=== PATIENT | female | born 1980 | race Caucasian/White ===

== ENCOUNTER 2018-05-27 04:26 | Emergency (ER) | payer OTHER ==
[2018-05-27] MEDS ORDERED: IBUPROFEN 400 MG TAB ONE (04:48)
--- NOTE | 2018-05-27 04:59 | ER ---
Nurse's Notes [facility] Name: Isabel Yeung Age: 37 yrs Sex: Female : 1980 Arrival Date: 05/27/2018 Time: 04:27 Bed 4 Private MD: Diagnosis: Fall due to bumping against object;Pain in right knee Presentation: 05/27 04:25 Presenting complaint: Patient states: that she was changing a tire and the lug wrench fc slipped and hit her in the right knee. She then hit the knee on the ground. Unable to stand or straighten leg. Transition of care: patient was not received from another setting of care. Onset of symptoms was May 27, 2018 at 04:00. Risk Assessment: Do you want to hurt yourself or someone else? Patient reports no desire to harm self or others. Initial Sepsis Screen: Does the patient meet any 2 criteria? No. Patient's initial sepsis screen is negative. Does the patient have a suspected source of infection? No. Patient's initial sepsis screen is negative. Care prior to arrival: Medication(s) given: Fentanyl 50 mcg nasally. 04:25 Method Of Arrival: EMS: [facility] 04:25 Acuity: ILENE 3 Triage Assessment: 04:38 General: Appears uncomfortable, slender, Behavior is calm, cooperative, appropriate for age. Pain: Complains of pain in right leg Pain currently is 2 out of 10 on a pain scale. at worst was 10 out of 10 on a pain scale. Quality of pain is described as aching, sharp, throbbing, Pain began 30 min ago. Is continuous, Aggravated by increased activity, repositioning. EENT: No deficits noted. Neuro: Level of Consciousness is awake, alert, obeys commands, Oriented to person, place, time, situation. Cardiovascular: No deficits noted. Respiratory: No deficits noted. GI: No deficits noted. : No deficits noted. Derm: Skin is pink, warm \T\ dry. Musculoskeletal: Circulation, motion, and sensation intact. Capillary refill < 3 seconds, Range of motion: intact in all extremities. 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 - Social history:: Smoking status: Patient/guardian denies using tobacco. - Ebola Screening: : Patient negative for fever greater than or equal to 101.5 degrees Fahrenheit, and additional compatible Ebola Virus Disease symptoms Patient denies exposure to infectious person Patient denies travel to an Ebola-affected area in the 21 days before illness onset. - Family history:: not pertinent. Screenin:25 Abuse screen: Denies threats or abuse. Nutritional screening: No deficits noted. fc Tuberculosis screening: No symptoms or risk factors identified. Fall Risk None identified. Assessment: 04:40 Reassessment: See triage assessment. 05:30 Reassessment: Patient appears in no apparent distress at this time. Patient and/or cc3 family updated on plan of care and expected duration. Pain level reassessed. Patient is alert, oriented x 3, equal unlabored respirations, skin warm/dry/pink. Dr. Leonard discharged the patient home with prescriptions given. No IV cannula in situ. Patient left ER vitally stable and ambulatory with crutches. Vital Signs: 04:25 BP 127 / 84; Pulse 68; Resp 20; Temp 98.8(O); Pulse Ox 100% on R/A; Weight 68.04 kg fc (R); Height 5 ft. 4 in. (162.56 cm) (R); Pain 2/10; 04:25 Body Mass Index 25.75 (68.04 kg, 162.56 cm) ED Course: 04:25 Arm band placed on Patient placed in an exam room, on a stretcher. fc 04:25 Patient has correct armband on for positive identification. Placed in gown. Bed in low fc position. Call light in reach. Side rails up X2. Pulse ox on. NIBP on. 04:27 Patient arrived in ED. tl2 04:28 Kauhsal Leonard MD is Attending Physician. sukhjinder 04:35 Triage completed. fc 04:52 X-ray completed. Portable x-ray completed in exam room. Patient tolerated procedure sg4 well. 04:53 Gisel Hightower is Primary Nurse. cc3 04:57 Knee Right 3 View XRAY In Process Unspecified. EDMS 04:58 Andrea Candelaria MD is Referral Physician. [facility] 05:30 No provider procedures requiring assistance completed. Patient did not have IV access cc3 during this emergency room visit. Administered Medications: 04:46 Drug: Motrin 600 mg Route: PO; tl2 05:30 Follow up: Response: No adverse reaction; Pain is decreased cc3 05:00 Drug: [place] 10 mg-325 mg 1 tabs Route: PO; cc3 05:30 Follow up: Response: No adverse reaction; Pain is decreased cc3 Outcome: 04:58 Discharge ordered by . [facility] 05:30 Discharged to home ambulatory, with friend, with crutches cc3 05:30 Condition: stable 05:30 Discharge instructions given to patient, Instructed on discharge instructions, follow up and referral plans. medication usage, Demonstrated understanding of instructions, follow-up care, medications, Prescriptions given X 2. 05:36 Patient left the ED. cc3 Signatures: Dispatcher [employer] EDKaushal Moreira MD MD cha Chretien, Felicia RN RN Sita Mackenzie RN RN tl2 Gisel Hightower cc3 Stacy Cantu sg4 Corrections: (The following items were deleted from the chart) 04:39 04:25 Care prior to arrival: None. [facility] 04:39 04:25 Care prior to arrival: Medication(s) given: Fentanyl 50 mcg IM [facility]
--- NOTE | 2018-05-27 04:59 | EDPHYS ---
Physician Documentation [facility] Name: Isabel Yeung Age: 37 yrs Sex: Female : 1980 Arrival Date: 05/27/2018 Time: 04:27 Bed 4 Private MD: ED Physician Kaushal Leonard HPI: 05/27 04:40 This 37 yrs old Female presents to ER via EMS with complaints of right knee sukhjinder pain, sp fall. 04:40 The patient presents with decreased range of motion, pain, that is acute. The sukhjinder complaints affect the right knee. Context: The problem was sustained on a street or driveway. Onset: The symptoms/episode began/occurred just prior to arrival. Modifying factors: The symptoms are alleviated by elevating leg, remaining still. Associated signs and symptoms: The patient has no apparent associated signs or symptoms. Treatment prior to arrival includes: prescription medications, nasal fentanyl. Severity of symptoms: At their worst the symptoms were moderate, in the emergency department the symptoms are unchanged. The patient has not experienced similar symptoms in the past. 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 - Social history:: Smoking status: Patient/guardian denies using tobacco. - Ebola Screening: : Patient negative for fever greater than or equal to 101.5 degrees Fahrenheit, and additional compatible Ebola Virus Disease symptoms Patient denies exposure to infectious person Patient denies travel to an Ebola-affected area in the 21 days before illness onset. - Family history:: not pertinent. ROS: 04:40 Constitutional: Negative for fever, chills, and weight loss, Eyes: Negative for injury, sukhjinder pain, redness, and discharge, ENT: Negative for injury, pain, and discharge, Neck: Negative for injury, pain, and swelling, Cardiovascular: Negative for chest pain, palpitations, and edema, Respiratory: Negative for shortness of breath, cough, wheezing, and pleuritic chest pain, Abdomen/GI: Negative for abdominal pain, nausea, vomiting, diarrhea, and constipation, Back: Negative for injury and pain, : Negative for injury, bleeding, discharge, and swelling, Skin: Negative for injury, rash, and discoloration, Neuro: Negative for headache, weakness, numbness, tingling, and seizure, Psych: Negative for depression, anxiety, suicide ideation, homicidal ideation, and hallucinations, Allergy/Immunology: Negative for hives, rash, and allergies, Endocrine: Negative for neck swelling, polydipsia, polyuria, polyphagia, and marked weight changes, Hematologic/Lymphatic: Negative for swollen nodes, abnormal bleeding, and unusual bruising. 04:40 MS/extremity: Positive for decreased range of motion, pain, swelling, of the right knee. Exam: 04:40 Constitutional: This is a well developed, well nourished patient who is awake, alert, sukhjinder and in no acute distress. Head/Face: Normocephalic, atraumatic. Eyes: Pupils equal round and reactive to light, extra-ocular motions intact. Lids and lashes normal. Conjunctiva and sclera are non-icteric and not injected. Cornea within normal limits. Periorbital areas with no swelling, redness, or edema. ENT: Nares patent. No nasal discharge, no septal abnormalities noted. Tympanic membranes are normal and external auditory canals are clear. Oropharynx with no redness, swelling, or masses, exudates, or evidence of obstruction, uvula midline. Mucous membranes moist. Neck: Trachea midline, no thyromegaly or masses palpated, and no cervical lymphadenopathy. Supple, full range of motion without nuchal rigidity, or vertebral point tenderness. No Meningismus. Chest/axilla: Normal chest wall appearance and motion. Nontender with no deformity. No lesions are appreciated. Cardiovascular: Regular rate and rhythm with a normal S1 and S2. No gallops, murmurs, or rubs. Normal PMI, no JVD. No pulse deficits. Respiratory: Lungs have equal breath sounds bilaterally, clear to auscultation and percussion. No rales, rhonchi or wheezes noted. No increased work of breathing, no retractions or nasal flaring. Abdomen/GI: Soft, non-tender, with normal bowel sounds. No distension or tympany. No guarding or rebound. No evidence of tenderness throughout. Back: No spinal tenderness. No costovertebral tenderness. Full range of motion. Female : Normal external genitalia. Skin: Warm, dry with normal turgor. Normal color with no rashes, no lesions, and no evidence of cellulitis. Neuro: Awake and alert, GCS 15, oriented to person, place, time, and situation. Cranial nerves II-XII grossly intact. Motor strength 5/5 in all extremities. Sensory grossly intact. Cerebellar exam normal. Normal gait. Psych: Awake, alert, with orientation to person, place and time. Behavior, mood, and affect are within normal limits. 04:40 Musculoskeletal/extremity: ROM: full active range of motion, full passive range of motion, limited active range of motion, limited passive range of motion, Circulation is intact in all extremities. Sensation intact. Compartment Syndrome exam of affected extremity: is normal. DVT Exam: negative Homans' sign noted on exam, no appreciated bluish discoloration, no erythema, no increased warmth, pain, swelling, tenderness. Vital Signs: 04:25 BP 127 / 84; Pulse 68; Resp 20; Temp 98.8(O); Pulse Ox 100% on R/A; Weight 68.04 kg fc (R); Height 5 ft. 4 in. (162.56 cm) (R); Pain 2/10; 04:25 Body Mass Index 25.75 (68.04 kg, 162.56 cm) MDM: 04:28 Patient medically screened. [facility] 04:44 Data reviewed: vital signs, nurses notes, radiologic studies, plain films. [facility] 05/27 04:39 Order name: Knee Right 3 View XRAY [facility] 05/27 04:39 Order name: Ice pack; Complete Time: 05:00 [facility] 05/27 04:39 Order name: Knee Immobilizer; Complete Time: 05:40 [facility] 05/27 04:58 Order name: Gerardo wrap-joint; Complete Time: 05:40 [facility] Administered Medications: 04:46 Drug: Motrin 600 mg Route: PO; tl2 05:30 Follow up: Response: No adverse reaction; Pain is decreased cc3 05:00 Drug: [place] 10 mg-325 mg 1 tabs Route: PO; cc3 05:30 Follow up: Response: No adverse reaction; Pain is decreased cc3 Disposition: 05/27/18 04:58 Discharged to Home. Impression: Fall due to bumping against object, Pain in right knee. - Condition is Stable. - Discharge Instructions: How to Use a Knee Brace, Knee Pain, Joint Pain, [id number]. - Prescriptions for Ibuprofen 600 mg Oral Tablet - take 1 tablet by ORAL route every 8 hours As needed take with food; 21 tablet. Tylenol- Codeine #3 300-30 mg Oral Tablet - take 2 tablets by ORAL route every 6 hours As needed; 24 tablet. - Medication Reconciliation Form, Thank You Letter, Antibiotic Education, Prescription Opioid Use form. - Follow up: Private Physician; When: 2 - 3 days; Reason: Recheck today's complaints, Continuance of care, Re-evaluation by your physician. Follow up: Andrea Candelaria; When: 2 - 3 days; Reason: Recheck today's complaints, Continuance of care, Re-evaluation by your physician. - Problem is new. - Symptoms have improved. Signatures: Dispatcher [employer] EDKaushal Moreira MD MD cha Chretien, Felicia RN RN Sita Mackenzie RN RN 2 Gisel Hightower 3 Corrections: (The following items were deleted from the chart) 05:36 04:58 05/27/2018 04:58 Discharged to Home. Impression: Fall due to bumping against cc3 object; Pain in right knee. Condition is Stable. Discharge Instructions: How to Use a Knee Brace, Knee Pain, Joint Pain, [id number]. Prescriptions for Ibuprofen 600 mg Oral Tablet - take 1 tablet by ORAL route every 8 hours As needed take with food; 21 tablet, Tylenol-Codeine #3 300-30 mg Oral Tablet - take 2 tablets by ORAL route every 6 hours As needed; 24 tablet. and Forms are Medication Reconciliation Form, Thank You Letter, Antibiotic Education, Prescription Opioid Use. Follow up: Private Physician; When: 2 - 3 days; Reason: Recheck today's complaints, Continuance of care, Re-evaluation by your physician. Follow up: Andrea Candelaria; When: 2 - 3 days; Reason: Recheck today's complaints, Continuance of care, Re-evaluation by your physician. Problem is new. Symptoms have improved. sukhjinder
[2018-05-27] MEDS ORDERED: HYDROCODONE/APAP 10/325 TAB ONE (05:11)
--- NOTE | 2018-05-27 12:34 | RAD REPORT ---
EXAM DESCRIPTION: RAD - Knee Right 3 View - 05/27/2018 4:58 am CLINICAL HISTORY: PAIN Trauma, pain COMPARISON: No comparisons FINDINGS: No fracture or dislocation of the right knee is seen. No joint effusion present.
== END 2018-05-27 05:36 | disposition home or self-care (01) ==
LOC: ER 04:26
DX: M25.561 Pain in right knee (principal); W18.09XA Striking against other object with subsequent fall, initial encounter
CPT/HCPCS: 99284

== ENCOUNTER 2021-04-14 09:56 | Emergency (ER) | payer BC, OTHER ==
[2021-04-14] MEDS ORDERED: AMOX/K CLAV 875 MG TAB ONE (11:07)
[2021-04-14] MEDS ORDERED: MORPHINE 4 MG/ML SYR ONE (11:07)
[2021-04-14] MEDS ORDERED: ONDANSETRON 4 MG (ODT) TAB ONE (11:08)
--- NOTE | 2021-04-14 11:11 | EDPHYS ---
Physician Documentation [facility] Name: Isabel Yeung Age: 40 yrs Sex: Female : 1980 Arrival Date: 04/14/2021 Time: 09:59 Bed 12 Private MD: ED Physician Polina Tomlin HPI: 04/14 11:08 This 40 yrs old Female presents to ER via Ambulatory with complaints of Ear ma2 Pain. 11:08 Onset: The symptoms/episode began/occurred suddenly, 3 day(s) ago. Associated signs and ma2 symptoms: Pertinent negatives: nausea, shortness of breath, tinnitus, vertigo. Severity of symptoms: At their worst the symptoms were moderate in the emergency department the symptoms are unchanged. The patient has not experienced similar symptoms in the past. Patient has left ear pain, for 3 days. Constant severe.. 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 - Social history:: Smoking status: Patient/guardian denies using tobacco, the patient reports quitting approximately 3 years ago, Patient/guardian denies using alcohol, street drugs, The patient lives with family. - Family history:: not pertinent. ROS: 11:08 Constitutional: Negative for fever, chills, and weight loss. ma2 11:08 All other systems are negative. Exam: 11:08 Constitutional: This is a well developed, well nourished patient who is awake, alert, ma2 and in no acute distress. Head/Face: Normocephalic, atraumatic. Eyes: Pupils equal round and reactive to light, extra-ocular motions intact. Lids and lashes normal. Conjunctiva and sclera are non-icteric and not injected. Cornea within normal limits. Periorbital areas with no swelling, redness, or edema. ENT: Left emilie with effusion tympanic membrane is red, no mastoiditis clinically. Otherwise right ear exam is within normal limits. No nasal discharge, no septal abnormalities noted. external auditory canals are clear. Oropharynx with no redness, swelling, or masses, exudates, or evidence of obstruction, uvula midline. Mucous membranes moist. Neck: Trachea midline, no thyromegaly or masses palpated, and no cervical lymphadenopathy. Supple, full range of motion without nuchal rigidity, or vertebral point tenderness. No Meningismus. Chest/axilla: Normal chest wall appearance and motion. Nontender with no deformity. No lesions are appreciated. Cardiovascular: Regular rate and rhythm with a normal S1 and S2. No gallops, murmurs, or rubs. Normal PMI, no JVD. No pulse deficits. Respiratory: Lungs have equal breath sounds bilaterally, clear to auscultation and percussion. No rales, rhonchi or wheezes noted. No increased work of breathing, no retractions or nasal flaring. Abdomen/GI: Soft, non-tender, with normal bowel sounds. No distension or tympany. No guarding or rebound. No evidence of tenderness throughout. Back: No spinal tenderness. No costovertebral tenderness. Full range of motion. Skin: Warm, dry with normal turgor. Normal color with no rashes, no lesions, and no evidence of cellulitis. MS/ Extremity: Pulses equal, no cyanosis. Neurovascular intact. Full, normal range of motion. Neuro: Awake and alert, GCS 15, oriented to person, place, time, and situation. Cranial nerves II-XII grossly intact. Motor strength 5/5 in all extremities. Sensory grossly intact. Cerebellar exam normal. Normal gait. Vital Signs: 10:26 BP 135 / 95; Pulse 65; Resp 16; Temp 98.9; Pulse Ox 100% ; Weight 63.5 kg; Height 5 ft. vg1 4 in. (162.56 cm); Pain 10/10; 10:26 Body Mass Index 24.03 (63.50 kg, 162.56 cm) vg1 MDM: 10:40 Patient medically screened. ma2 11:08 Differential diagnosis: otitis media, ruptured TM, acute otalgia. Data reviewed: vital ma2 signs, nurses notes. Counseling: I had a detailed discussion with the patient and/or guardian regarding: the historical points, exam findings, and any diagnostic results supporting the discharge/admit diagnosis, the presence of at least one elevated blood pressure reading (>120/80) during this emergency department visit, the need for outpatient follow up. Response to treatment: the patient's symptoms have markedly improved after treatment. Administered Medications: 11:03 Not Given (Physician Discretion): morphine 8 mg IVP once; RASS on ADMIN: Combtv4, Very ss Agttd3, Agttd2, Rstlss1, AlertClm0, Drwsy-1, Lt Sdtn-2, Mod Sdtn-3, Dp Sdtn-4, UnArsble-5 11:15 Drug: Ondansetron 4 mg Route: PO; ss 11:48 Follow up: Response: No adverse reaction ss 11:18 Drug: Augmentin (Amoxicillin-Clavulanate) 875 mg Route: PO; ss 11:48 Follow up: Response: No adverse reaction ss 11:18 Drug: Clindamycin 300 mg Route: PO; ss 11:48 Follow up: Response: No adverse reaction ss 11:18 Drug: morphine 8 mg Route: IM; Site: right gluteus; ss 11:48 Follow up: Response: No adverse reaction; Pain is decreased ss Disposition Summary: 04/14/21 11:10 Discharge Ordered Location: Home ma2 Condition: Stable ma2 Diagnosis - Acute serous otitis media, left ear ma2 Followup: ma2 - With: Private Physician - When: Tomorrow - Reason: Continuance of care Discharge Instructions: - Discharge Summary Sheet ma2 - Otitis Media, Adult ma2 Forms: - Medication Reconciliation Form ma2 - Thank You Letter ma2 - Antibiotic Education ma2 - Prescription Opioid Use ma2 Prescriptions: - Augmentin 875-125 mg Oral Tablet - take 1 tablet by ORAL route every 12 hours for 10 days; 20 tablet; Refills: 0, ma2 Product Selection Permitted - Clindamycin HCl 300 mg Oral Capsule - take 1 capsule by ORAL route every 6 hours for 10 days; 40 capsule; Refills: 0, ma2 Product Selection Permitted - Diclofenac Sodium 75 mg Oral Tablet Sustained Release - take 1 tablet by ORAL route 2 times per day; 30 tablet; Refills: 0, Product ma2 Selection Permitted - Fluconazole 200 mg Oral Tablet - take 2 tablets by ORAL route once daily; 60 tablet; Refills: 0, Product ma2 Selection Permitted Signatures: Josette Brush RN RN ss Polina Tomlin MD MD ma2 Pepe, Jade, RN RN vg1
--- NOTE | 2021-04-14 11:11 | ER ---
Nurse's Notes [facility] Name: Isabel Yeung Age: 40 yrs Sex: Female : 1980 Arrival Date: 04/14/2021 Time: 09:59 Bed 12 Private MD: Diagnosis: Acute serous otitis media, left ear Presentation: 04/14 10:26 Chief complaint: Patient states: Left ear pain began on Monday04/11/21; states went to [address] and was given an antibiotic IV and Rx of Cefuroxime and Medrol. 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 State Left ear pain feels 'sharp and medications dont seem to be working'. Also states nausea and sore throat. Coronavirus screen: Vaccine status: Patient reports being unvaccinated. Ebola Screen: Patient negative for fever greater than or equal to 101.5 degrees Fahrenheit, and additional compatible Ebola Virus Disease symptoms. Initial Sepsis Screen: Does the patient meet any 2 criteria? No. Patient's initial sepsis screen is negative. Does the patient have a suspected source of infection? No. Patient's initial sepsis screen is negative. Risk Assessment: Do you want to hurt yourself or someone else? Patient reports no desire to harm self or others. Onset of symptoms was April 11, 2021. 10:26 Method Of Arrival: Ambulatory [facility] 10:26 Acuity: ILENE 3 1 Triage Assessment: 10:29 General: Appears in no apparent distress. uncomfortable, Behavior is calm, cooperative. vg1 Pain: Complains of pain in left ear and throat Pain currently is 10 out of 10 on a pain scale. EENT: Throat is clear. 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 - Social history:: Smoking status: Patient/guardian denies using tobacco, the patient reports quitting approximately 3 years ago, Patient/guardian denies using alcohol, street drugs, The patient lives with family. - Family history:: not pertinent. Screenin:00 Abuse screen: Denies threats or abuse. Denies injuries from another. Nutritional ss screening: No deficits noted. Nutritional screening: No deficits noted. Tuberculosis screening: Never had TB. Fall Risk None identified. Assessment: 11:47 Reassessment: Patient appears in no apparent distress at this time. Patient and/or ss family updated on plan of care and expected duration. Pain level reassessed. Patient is alert, oriented x 3, equal unlabored respirations, skin warm/dry/pink. Pt reports some relief from Morphine administration. at bedside who states he will drive home. Pt verbalizes understanding importance of follow up and has scheduled appointment with ENT, however their first available appointment is in May. Vital Signs: 10:26 BP 135 / 95; Pulse 65; Resp 16; Temp 98.9; Pulse Ox 100% ; Weight 63.5 kg; Height 5 ft. vg1 4 in. (162.56 cm); Pain 10/10; 10:26 Body Mass Index 24.03 (63.50 kg, 162.56 cm) vg1 ED Course: 09:59 Patient arrived in ED. ds1 10:29 Triage completed. vg1 10:29 Arm band placed on. vg1 10:33 Josette Brush, SUMAN is Primary Nurse. ss 10:40 Polina Tomlin MD is Attending Physician. ma2 11:00 Patient has correct armband on for positive identification. Bed in low position. Call ss light in reach. 11:47 No provider procedures requiring assistance completed. Patient did not have IV access ss during this emergency room visit. Administered Medications: 11:03 Not Given (Physician Discretion): morphine 8 mg IVP once; RASS on ADMIN: Combtv4, Very ss Agttd3, Agttd2, Rstlss1, AlertClm0, Drwsy-1, Lt Sdtn-2, Mod Sdtn-3, Dp Sdtn-4, UnArsble-5 11:15 Drug: Ondansetron 4 mg Route: PO; ss 11:48 Follow up: Response: No adverse reaction ss 11:18 Drug: Augmentin (Amoxicillin-Clavulanate) 875 mg Route: PO; ss 11:48 Follow up: Response: No adverse reaction ss 11:18 Drug: Clindamycin 300 mg Route: PO; ss 11:48 Follow up: Response: No adverse reaction ss 11:18 Drug: morphine 8 mg Route: IM; Site: right gluteus; ss 11:48 Follow up: Response: No adverse reaction; Pain is decreased Outcome: 11:10 Discharge ordered by . sarah 11:47 Discharged to home ambulatory, with significant other. ss 11:47 Condition: good 11:47 Discharge instructions given to patient, significant other, Instructed on discharge instructions, follow up and referral plans. medication usage, Demonstrated understanding of instructions, follow-up care, medications, Prescriptions given X 4. 11:49 Patient left the ED. ss Signatures: Jaci Cuevas ds1 Josette Brush RN RN ss Polina Tomlin MD MD ma2 Jade Cantu RN RN vg1
[2021-04-14 12:08] VITALS: BP 135/95; TEMP 98.9; O2SAT 100
--- OUTSIDE RECORDS SUMMARY | 2021-04-17 18:58 | XMS REPORT | Continuity of Care Document ---
:1980 Author Organization [facility] t Address [address] [place] [address] Care Team Providers Name Role Phone Ko LEVINE, Inga Attending Clinician Shant DEMPSEY Attending Clinician Unavailable DALJIT Attending Clinician Unavailable Payers Payer Name Policy Type Policy Number Effective Date Expiration Date [place] [address] [id number] 2020 00:00:00 HLTH-TML/PPO Problems Condition Condition Condition Status Onset Resolution Last Treating Co mments Source Name Details Category Date Date Treatment Clinician Date No known No known Disease Kelse felix active active Sephil problems problems Allergies, Adverse Reactions, Alerts Allergy Allergy Status Severity Reaction(s) Onset Inactive Treating Comm ents Source Name Type Date Date Clinician No Known DA Active U [facility] Allergie 2-03 Clear s 00:00: Lamb 00 [facility] Social History Social Habit Start Date Stop Date Quantity Comments Source Sex Assigned At [birth year] Kaitbrian villarreal 00:00:00 00:00:00 Smoking Status Start Date Stop Date Source Ex-smoker 2021-04-13 00:00:00 2021-04-13 00:00:00 Kait mccray Medications Ordered Filled Start Stop Current Ordering Indication Dosage Frequency Signature Comments Components Source Medication Medication Date Date Medication? Clinician (SIG) Name Name Fexofenadin 2021-1 Yes Take by Walter sey e HCl 1-09 mouth Seybold (DENEEN 09:35: ALLERGY OR) 38 EPINEPHrine Yes .3mg Inject 0.3 Kait (EPIPEN 7-13 mL (0.3 mg Seybol d 2-LAURIE) 0.3 00:00: total) as MG/0.3 ML 00 directed IJ SOAJ as needed for anaphylaxi s 1 time only Immunizations Ordered Immunization Filled Immunization Date Status Commen ts Source Name Name Tdap- (Boostrix, 2019-12-04 Completed Kait mccray Adacel) 00:00:00 Hep A/ Hep B Combo 2015-06-01 Completed Kait Loweryybold 00:00:00 Hep A/ Hep B Combo 2015-01-27 Completed Kait Loweryybphillip 00:00:00 Hep A/ Hep B Combo 2014-12-30 Completed Kait Loweryybold 00:00:00 Vital Signs Vital Name Observation Time Observation Value Comments Source Systolic blood pressure 2021-04-13 15:30:00 114 mm[Hg] Kait Seybold Diastolic blood 2021-04-13 15:30:00 60 mm[Hg] Kelse y Seybold pressure Heart rate 2021-04-13 15:30:00 79 /min Kait livingstonbomariely Body temperature 2021-04-13 15:30:00 36.56 Yue Karla ey Seybold Respiratory rate 2021-04-13 15:30:00 16 /min Karla livingston Seybphillip Body height 2021-04-13 15:30:00 162.6 cm Kait mccray Body weight 2021-04-13 15:30:00 67.586 kg Kait livingstonbold BMI 2021-04-13 15:30:00 25.58 kg/m2 Kait mccray Systolic blood pressure 2021-04-13 15:30:00 114 mm[Hg] Kait Seybold Diastolic blood 2021-04-13 15:30:00 60 mm[Hg] Kelse y Seybold pressure Heart rate 2021-04-13 15:30:00 79 /min Kait livingstonbold Body temperature 2021-04-13 15:30:00 36.56 Yue Karla ey Seybold Respiratory rate 2021-04-13 15:30:00 16 /min Karla Sherwood Body height 2021-04-13 15:30:00 162.6 cm Kait mccray Body weight 2021-04-13 15:30:00 67.586 kg Kait mccray BMI 2021-04-13 15:30:00 25.58 kg/m2 Kait mccray Procedures This patient has no known procedures. Encounters Start End Encounter Admission Attending Care Care Encounter Source Date/Time Date/Time Type Type Clinicians Facility Department ID 2021-04-13 2021-04-13 Office Adonis Connell [id number] Kait 09:25:26 09:55:26 Visit Dang Andrea [id number] Se villarreal Somogyi [id number] 2021-04-13 2021-04-13 Office Adonis Connell [id number] 09:25:26 09:55:26 Visit Dang Mendez [id number] Somogyi [id number] 2020-12-16 2020-12-16 Outpatient KAIT BANERJEE [id number] Kait 10:30:00 10:30:00 Seybol d 2020-12-16 2020-12-16 Outpatient KAIT BANERJEE [id number] Kait 10:25:00 10:25:00 Seybol d 2020-12-16 2020-12-16 Outpatient EDUARDO DEMPSEY [id number] Kait 00:00:00 00:00:00 Seybol d 2020-12-15 2020-12-15 Outpatient KAIT BOCANEGRA [id number] Kait 15:30:00 15:30:00 MICHAEL Seybol d 2020-12-15 2020-12-15 Outpatient KAIT BANERJEE [id number] Kait 14:30:00 14:30:00 Seybol d 2020-12-15 2020-12-15 Outpatient KAIT BANERJEE [id number] Kait 13:00:00 13:00:00 Seybol d 2020-12-15 2020-12-15 Outpatient KAIT BOCANEGRA [id number] Kait 00:00:00 00:00:00 MICHAEL huynh 2020-10-01 2020-10-01 Outpatient EDUARDO DEMPSEY KAIT [id number] Kait 00:00:00 00:00:00 Lobo huynh Results Test Description Test Time Test Comments Results Result [facility] e Comments - XR ELBOW 2 VIEWS 2018-07-08 FAX: LT 03:07:00 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 HISTORY: Fall. Fracture left wrist. COMPARISON: None. FINDINGS: Frontal and lateral radiograph of the left forearm is submitted. There is comminuted fracture of the distal radial metaphyses with mild dorsal angulation and dorsal displacement of the distal fracture fragment. Avulsion fracture of the ulnar styloid. Mild soft tissue swelling of the wrist seen. Elbow joint is intact. There is no radiopaque foreign body. If indicated, short-term follow-up or MRI can be obtained for complete assessment. IMPRESSION: 1. Distal radius fracture 2. Avulsion fracture of the ulnar styloid. 3. Soft tissue swelling. SL:[JSYED-H] EXAM: CR, XR WRIST 3+ VIEWS, LT: 07/08/2018. HISTORY: Fall. Fracture left wrist. COMPARISON: None. FINDINGS: Frontal oblique and lateral radiograph of the left wrist is submitted. There is comminuted fracture of the distal radial metaphyses with mild dorsal angulation and dorsal displacement of the distal fracture fragment. Avulsion fracture of the ulnar styloid. Mild soft tissue swelling of the wrist seen. If indicated, short-term follow-up or MRI can be obtained for complete PAGE 1 Signed Report (CONTINUED) FAX: Sandra Contreras [facility] [phone] [place]: St: REG Name: ADOLFO GARLAND [facility] : 1980 Age/S: 37/F [address] [place] [address] Unit #: [id number] Loc: [place] [address] Phys: Sandra Contreras [facility] Acct: [id number] Dis Date: Status: REG ER PHONE #: [phone] Exam Date: 07/08/2018 0245 FAX #: [phone] Reason: FALL, HYPEREXTENDED WRIST/HAND TO BREAK FALL EXAMS: CPT CODE: [id number] XR ELB[place] [address] [place] [address] <Continued> assessment. IMPRESSION: 1. Distal radial fracture 2. Avulsion fracture of the ulnar styloid. 3. Soft tissue swelling. SL:[JSYED-H] EXAM: CR, XR ELBOW 2 VIEWS, LT: 07/08/2018. HISTORY: Fall. Fracture left wrist. COMPARISON: None. FINDINGS: Frontal and lateral radiograph of the left elbow is submitted. Alignment is satisfactory. No acute fracture, dislocation or lytic bony lesion seen. No appreciable joint effusion identified. Elbow joint is intact. There is no radiopaque foreign body. If indicated, short-term follow-up or MRI can be obtained for complete assessment. IMPRESSION: 1. No acute fracture seen. SL:[JSYED-H] PAGE 2 Signed Report (CONTINUED) FAX: Sandra Contreras [phone] [place]: St: REG Name: ADOLFO GARLAND [facility] : 1980 Age/S: 37/F [address] [place] [address] Unit #: [id number] Loc: [place] [address] Phys: Sandra Contreras Acct: [id number] Dis Date: Status: REG ER PHONE #: [phone] Exam Date: 07/08/2018 0245 FAX #: [phone] Reason: FALL, HYPEREXTENDED WRIST/HAND TO BREAK FALL EXAMS: CPT CODE: [id number] XR ELB[address] [place] [address] <Continued> at 0307 Reported and signed by: Joshua Blancas M.D. CC: Sandra Contreras Technologist: RT Parag(R); [facility] Date/Time/By: 07/08/2018 (306) : By: [email or web address] Orig Print D/T: S: 07/08/2018 (309) PAGE 3 Signed Report - XR WRIST 3 + V 2018-07-08 FAX: LT 03:07:00 Sandra Contreras [phone] [place]: St: REG Name: ADOLFO GARLAND [facility] : 1980 Age/S: 37/F [address] [place] [address] Unit #: [id number] Loc: [place] [address] Phys: Sandra ContrerasP Acct: [id number] Dis Date: Status: REG ER PHONE #: [phone] Exam Date: 07/08/2018 0244 FAX #: [phone] Reason: FALL, HYPEREXTENDED WRIST/HAND TO BREAK FALL EXAMS: CPT CODE: [id number] XR WRIST 3 + [place] [address] EXAM: CR, XR FOREARM 2 VIEWS, LT: 07/08/2018. HISTORY: Fall. Fracture left wrist. COMPARISON: None. FINDINGS: Frontal and lateral radiograph of the left forearm is submitted. There is comminuted fracture of the distal radial metaphyses with mild dorsal angulation and dorsal displacement of the distal fracture fragment. Avulsion fracture of the ulnar styloid. Mild soft tissue swelling of the wrist seen. Elbow joint is intact. There is no radiopaque foreign body. If indicated, short-term follow-up or MRI can be obtained for complete assessment. IMPRESSION: 1. Distal radius fracture 2. Avulsion fracture of the ulnar styloid. 3. Soft tissue swelling. SL:[JSYED-H] EXAM: CR, XR WRIST 3+ VIEWS, LT: 07/08/2018. HISTORY: Fall. Fracture left wrist. COMPARISON: None. FINDINGS: Frontal oblique and lateral radiograph of the left wrist is submitted. There is comminuted fracture of the distal radial metaphyses with mild dorsal angulation and dorsal displacement of the distal fracture fragment. Avulsion fracture of the ulnar styloid. Mild soft tissue swelling of the wrist seen. If indicated, short-term follow-up or MRI can be obtained for complete PAGE 1 Signed Report (CONTINUED) FAX: Sandra Contreras [facility] [phone] [place]: St: REG Name: GARLANDADOLFO [facility] : 1980 Age/S: 37/F [address] [place] [address] Unit #: [id number] Loc: [place] [address] Phys: Sandra Contreras [facility] Acct: [id number] Dis Date: Status: [facility] ER PHONE #: [phone] Exam Date: 07/08/2018243 FAX #: [phone] Reason: FALL, HYPEREXTENDED WRIST/HAND TO BREAK FALL EXAMS: CPT CODE: [id number] XR WRIST 3 + V [place] [address] <Continued> assessment. IMPRESSION: 1. Distal radial fracture 2. Avulsion fracture of the ulnar styloid. 3. Soft tissue swelling. SL:[JSYED-H] EXAM: CR, XR ELBOW 2 VIEWS, LT: 07/08/2018. HISTORY: Fall. Fracture left wrist. COMPARISON: None. FINDINGS: Frontal and lateral radiograph of the left elbow is submitted. Alignment is satisfactory. No acute fracture, dislocation or lytic bony lesion seen. No appreciable joint effusion identified. Elbow joint is intact. There is no radiopaque foreign body. If indicated, short-term follow-up or MRI can be obtained for complete assessment. IMPRESSION: 1. No acute fracture seen. SL:[JSYED-H] PAGE 2 Signed Report (CONTINUED) FAX: Sandra Contreras [facility] [phone] [place]: St: REG Name: ADOLFO GARLAND [facility] : 1980 Age/S: 37/F [address] [place] [address] Unit #: [id number] Loc: [place] [address] Phys: Sandra Contreras [facility] Acct: [id number] Dis Date: Status: [facility] ER PHONE #: [phone] Exam Date: 07/08/2018243 FAX #: [phone] Reason: FALL, HYPEREXTENDED WRIST/HAND TO BREAK FALL EXAMS: CPT CODE: [id number] XR WRIST 3 + [place] [address] <Continued> at 0307 Reported and signed by: Joshua Blancas M.D. CC: Sandra Contreras Technologist: Nikko Kang, RT(R); Ernie Lin [facility] Date/Time/By: 07/08/2018 (306) : By: [email or web address] Orig Print D/T: S: 07/08/2018 (0772) PAGE 3 Signed Report - XR FOREARM 2 2018-07-08 FAX: VIEWS LT 03:07:00 Sandra Contreras [phone] [place]: St: REG Name: ADOLFO GARLAND [facility] : 1980 Age/S: 37/F [address] [place] [address] Unit #: [id number] Loc: [place] [address] Phys: Sandra Contreras Acct: [id number] Dis Date: Status: REG ER PHONE #: [phone] Exam Date: 07/08/2018243 FAX #: [phone] Reason: FALL, HYPEREXTENDED WRIST/HAND TO BREAK FALL EXAMS: CPT CODE: [id number] XR FORE[place] [address] [place] [address] EXAM: CR, XR FOREARM 2 VIEWS, LT: 07/08/2018. HISTORY: Fall. Fracture left wrist. COMPARISON: None. FINDINGS: Frontal and lateral radiograph of the left forearm is submitted. There is comminuted fracture of the distal radial metaphyses with mild dorsal angulation and dorsal displacement of the distal fracture fragment. Avulsion fracture of the ulnar styloid. Mild soft tissue swelling of the wrist seen. Elbow joint is intact. There is no radiopaque foreign body. If indicated, short-term follow-up or MRI can be obtained for complete assessment. IMPRESSION: 1. Distal radius fracture 2. Avulsion fracture of the ulnar styloid. 3. Soft tissue swelling. SL:[JSYED-H] EXAM: CR, XR WRIST 3+ VIEWS, LT: 07/08/2018. HISTORY: Fall. Fracture left wrist. COMPARISON: None. FINDINGS: Frontal oblique and lateral radiograph of the left wrist is submitted. There is comminuted fracture of the distal radial metaphyses with mild dorsal angulation and dorsal displacement of the distal fracture fragment. Avulsion fracture of the ulnar styloid. Mild soft tissue swelling of the wrist seen. If indicated, short-term follow-up or MRI can be obtained for complete PAGE 1 Signed Report (CONTINUED) FAX: Sandra ContrerasP [phone] [place]: St: REG Name: ADOLFO GARLAND [facility] : 1980 Age/S: 37/F [address] [place] [address] Unit #: [id number] Loc: [place] [address] Phys: Sandra ContrerasP Acct: [id number] Dis Date: Status: [facility] ER PHONE #: [phone] Exam Date: 07/08/2018 0244 FAX #: [phone] Reason: FALL, HYPEREXTENDED WRIST/HAND TO BREAK FALL EXAMS: CPT CODE: [id number] XR FORE[place] [address] [place] [address] <Continued> assessment. IMPRESSION: 1. Distal radial fracture 2. Avulsion fracture of the ulnar styloid. 3. Soft tissue swelling. SL:[JSYED-H] EXAM: CR, XR ELBOW 2 VIEWS, LT: 07/08/2018. HISTORY: Fall. Fracture left wrist. COMPARISON: None. FINDINGS: Frontal and lateral radiograph of the left elbow is submitted. Alignment is satisfactory. No acute fracture, dislocation or lytic bony lesion seen. No appreciable joint effusion identified. Elbow joint is intact. There is no radiopaque foreign body. If indicated, short-term follow-up or MRI can be obtained for complete assessment. IMPRESSION: 1. No acute fracture seen. SL:[JSYEGracia] PAGE 2 Signed Report (CONTINUED) FAX: Sandra Contreras [phone] [place]: St: REG Name: ADOLFO GARLAND [facility] : 1980 Age/S: 37/F [address] [place] [address] Unit #: [id number] Loc: [place] [address] Phys: Sandra Contreras Acct: [id number] Dis Date: Status: REG ER PHONE #: [phone] Exam Date: 07/08/2018 0244 FAX #: [phone] Reason: FALL, HYPEREXTENDED WRIST/HAND TO BREAK FALL EXAMS: CPT CODE: [id number] XR FOREARM [address] [place] [address] <Continued> at 0307 Reported and signed by: Joshua Blancas M.D. CC: Sandra Contreras Technologist: RT Parag(R)[facility] Date/Time/By: 07/08/2018 (0307) : By: [email or web address] Orig Print D/T: S: 07/08/2018 (309) PAGE 3 Signed Report
== END 2021-04-14 11:49 | disposition home or self-care (01) ==
LOC: ER 09:56
DX: H65.02 Acute serous otitis media, left ear (principal); E03.9 Hypothyroidism, unspecified; Z86.73 Personal history of transient ischemic attack (TIA), and cerebral infarction without residual deficits
CPT/HCPCS: 96372; 99283